=== PATIENT | female | born 1945 | race Two or more races ===

== ENCOUNTER → 2017-08-19 | Outpatient (CLI) | payer OTHER ==
[~2017-08-19] VITALS: Ht 152.4 cm; Wt 49.9 kg
[~2017-08-19] MED LIST: CALTRATE 600600 MG; NORVASC10 MG; NORVASC10 MG PO; SIMVASTATIN10 MG; SIMVASTATIN10 MG PO
== END | disposition home or self-care (01) ==
LOC: PPHC 11:57
DX: Z76.0 Encounter for issue of repeat prescription (principal)